=== PATIENT | female | born 1985 | race Caucasian/White ===

== ENCOUNTER 2021-11-10 19:07 | Emergency (ER) | payer OTHER ==
[2021-11-11 00:33] LABS: RED BLOOD COUNT 4.56 M/UL (4.00-5.10); WHITE BLOOD COUNT 9.7 K/UL (4.5-11.0)
[2021-11-11 00:44] LABS: BUN/CREATININE RATIO 13 (0-10)
[2021-11-11] MEDS ORDERED: MACROBID 100 M100 M1 PO (02:06)
== END 2021-11-11 02:14 | disposition home or self-care (01) ==
LOC: ER1 19:07
PROVIDERS: Family Medicine
DX: N39.0 Urinary tract infection, site not specified (principal)
CPT/HCPCS: 80053; 81001; 82962; 83605; 84703; 85025; 85610; 99284